=== PATIENT | female | born 1985 | race African-American/Black ===

== ENCOUNTER 2020-07-26 08:50 | Emergency (ER) | payer OTHER ==
[2020-07-26 08:59] VITALS: BMI 44.2
[2020-07-26] MEDS ORDERED: DEXAMETHASONE LIQUID 0.5 MG/5 ML PO ONE (09:29)
[2020-07-26] MEDS ORDERED: FAMOTIDINE 20 MG TABLET PO ONE (09:29)
[2020-07-26] MEDS ORDERED: FAMOTIDINE 20 MG TABLET ONE (09:47)
[2020-07-26] MEDS ORDERED: DEXAMETHASONE SOD PHOSPHATE 10 MG/1 ML VIAL ONE (09:47)
[2020-07-26 11:01] VITALS: BP 121/77; PULSE 81; TEMP 98.5
== END 2020-07-26 11:03 | disposition home or self-care (01) ==
LOC: JER 08:50
DX: R22.31 Localized swelling, mass and lump, right upper limb (principal); R22.32 Localized swelling, mass and lump, left upper limb; R60.0 Localized edema
CPT/HCPCS: 99283-25

== ENCOUNTER 2022-06-18 15:22 | Emergency (ER) | payer OTHER ==
[2022-06-18 15:50] VITALS: BP 115/84; PULSE 88; RESP 18; BMI 46.9
[2022-06-18] MEDS ORDERED: SODIUM CHLORIDE 0.9% 500 ML INFUS.BAG IV ONE (15:56)
[2022-06-18 17:00] LABS: BASO % 0.4 % (0-2.0); HEMATOCRIT 42.9 % (32.4-45.2); HEMOGLOBIN 14.1 GM/dL (10.7-15.3); LYMPH % 29.7 % (8-40); MCH 32.4 pg (25.7-33.7); MCHC 32.9 g/dl (32.0-36.0); MEAN CELL VOLUME 98.5 fl (80-96); MEAN PLT VOLUME 10.6 fl (7.5-11.1); MONO % 10.7 % (3.8-10.2); NEUT % 59.2 % (42.8-82.8); PLATELET COUNT 220 10^3/uL (134-434); RBC 4.36 M/mm3 (3.60-5.2); RDW 12.9 % (11.6-15.6); WHITE BLOOD COUNT 5.7 K/mm3 (4.0-10.0)
[2022-06-18 17:39] LABS: BLOOD UREA NITROGEN 10.5 mg/dL (7-18); CALCIUM 9.5 mg/dL (8.5-10.1)
[2022-06-18 17:40] LABS: ALBUMIN 3.9 g/dl (3.4-5.0)
[2022-06-18 17:44] LABS: BILIRUBIN,TOTAL 0.4 mg/dL (0.2-1)
[2022-06-18 19:30] LABS: URINE APPEARANCE CLEAR; URINE BILIRUBIN NEGATIVE (NEGATIVE); URINE COLOR YELLOW; URINE GLUCOSE (UA) NEGATIVE (NEGATIVE); URINE KETONE 2+ (NEGATIVE); URINE LEUK ESTERASE NEGATIVE (NEGATIVE); URINE NITRITE NEGATIVE (NEGATIVE); URINE PROTEIN NEGATIVE (NEGATIVE); URINE UROBILINOGEN 0.2 mg/dL (0.2-1.0)
== END 2022-06-18 20:47 | disposition home or self-care (01) ==
LOC: JER 15:22
DX: R55 Syncope and collapse (principal)
CPT/HCPCS: 0241U-QW; 36415; 70450-TC; 71045-TC-FY; 80053; 81003; 84484; 84703; 85025; 86850; 86900; 86901; 87086; 93005; 93010; 99285-25